=== PATIENT | male | born 1955 | race American Indian/Alaskan Native ===

== ENCOUNTER 2018-03-15 22:55 | Emergency (ER) | payer BC ==
[2018-03-15 23:02] VITALS: BMI 29.7
[2018-03-15 23:10] VITALS: BP 142/101; PULSE 78; RESP 20; O2SAT 98
--- NOTE | 2018-03-15 23:19 | ED PDOC ---
Arrival/HPI - General Chief Complaint: Chest Pain Time Seen by Provider: 03/15/18 22:58 Historian: Patient - History of Present Illness Narrative History of Present Illness (Text): 03/15/18 23:15 62 year old male, with no significant past medical history, presents to the Emergency department complaining of epigastric discomfort since prior to arrival. Patient informs worsening pain exacerbated by sitting up and bending down Patient denies any fever, chills, nausea, vomiting, diarrhea, changed in appetite, hematechezia, chest pain, shortness of breath or any other complaints. 03/16/18 16:08 Time/Duration: Prior to Arrival Symptom Onset: Gradual Symptom Course: Worsening Quality: Aching Activities at Onset: Light Context: Home Past Medical History - Provider Review Nursing Documentation Reviewed: Yes - HEENT Hx HEENT Disorder: Yes Other/Comment: Neuritis right eye - Psychiatric Hx Substance Use: No - Surgical History Hx Appendectomy: Yes - Anesthesia Hx Anesthesia: No Family/Social History - Physician Review Nursing Documentation Reviewed: Yes Family/Social History: No Known Family HX Smoking Status: Never Smoked Hx Alcohol Use: No Hx Substance Use: No Allergies/Home Meds Allergies/Adverse Reactions: Allergies No Known Allergies Allergy (Verified 03/15/18 23:02) Home Medications: Home Meds Medication Instructions Recorded Confirmed valACYclovir [Valtrex] 500 mg PO DAILY 12/23/16 03/15/18 Review of Systems - Physician Review All systems were reviewed & negative as marked: Yes - Review of Systems Constitutional: Normal. absent: Fevers Eyes: Normal ENT: Normal Respiratory: Normal. absent: SOB Cardiovascular: Normal. absent: Chest Pain Gastrointestinal: Abdominal Pain. absent: Diarrhea, Nausea, Vomiting, Appetite Changes, Hematochezia Genitourinary Male: Normal Musculoskeletal: Normal Skin: Normal Neurological: Normal Endocrine: Normal Hemo/Lymphatic: Normal Psychiatric: Normal Physical Exam Vital Signs Reviewed: Yes Vital Signs Pulse Resp BP Pulse Ox 03/15/18 23:09 78 20 142/101 H 98 Temperature: Afebrile Blood Pressure: Hypertensive Pulse: Regular Respiratory Rate: Normal Appearance: Positive for: Well-Appearing, Non-Toxic, Comfortable Pain Distress: None Mental Status: Positive for: Alert and Oriented X 3 - Systems Exam Head: Present: Atraumatic, Normocephalic Pupils: Present: PERRL Extroacular Muscles: Present: EOMI Conjunctiva: Present: Normal Respiratory/Chest: Present: Clear to Auscultation, Good Air Exchange. No: Respiratory Distress, Accessory Muscle Use Cardiovascular: Present: Regular Rate and Rhythm, Normal S1, S2. No: Murmurs Abdomen: Present: Tenderness (mild epigastric tenderness), Normal Bowel Sounds. No: Distention, Peritoneal Signs, Rebound, Guarding Upper Extremity: Present: Normal Inspection. No: Cyanosis, Edema Lower Extremity: Present: Normal Inspection. No: Edema Neurological: Present: GCS=15, CN II-XII Intact, Speech Normal Skin: Present: Warm, Dry, Normal Color. No: Rashes Psychiatric: Present: Alert, Oriented x 3, Normal Insight, Normal Concentration Medical Decision Making ED Course and Treatment: 03/15/18 23:20 Impression: 62 year old male presents to the Emergency department for epigastric discomfort. Plan: -- EKG -- Labs -- CXR -- Protonix -- Urinalysis -- Reassess and disposition Progress Notes: 03/15/18 23:20 EKG: Ordered, reviewed, and independently interpreted the EKG. Rate : 63 BPM Rhythm : NSR Interpretation : No ST-segment elevations or depressions, no T-wave inversions, normal intervals. 03/16/18 02:31 Patient's epigastric discomfort was due to patient's recent intake of some cleansing product. Upon reassessment, patient's symptoms have improved and patient denies any new complaints. Explained and discussed extensively how patient needs to quit smoking but he expresses superficial understanding. He states that he will smoke his last pack of cigarettes prior to quitting. Had this conversation with the patient in the patient but patient fails to cooperate. - Lab Interpretations Lab Results: 03/15/18 23:29 03/15/18 23:29 Lab Results 03/15/18 23:50: Urine Color yellow, Urine Appearance Clear, Urine pH 6.5, Ur Specific [place] 1.020, Urine Protein Negative, Urine Glucose (UA) Negative, Urine Ketones Negative, Urine Blood Negative, Urine Nitrate Negative, Urine Bilirubin Negative, Urine Urobilinogen 0.2, Ur Leukocyte Esterase Negative 03/15/18 23:29: Sodium 140, Potassium 3.7, Chloride 106, Carbon Dioxide 25, Anion Gap 13, BUN 12, Creatinine 1.4, Est GFR ( Amer) > 60, Est GFR (Non- Af Amer) 52, Random Glucose 102, Calcium 8.9, Total Bilirubin 0.3, AST 38, ALT 39, Alkaline Phosphatase 82, Lactate Dehydrogenase 384, Total Creatine Kinase 133, Troponin I < 0.01, Total Protein 7.1, Albumin 4.0, Globulin 3.0, Albumin/ Globulin Ratio 1.3, Amylase 72, Lipase 84 03/15/18 23:29: PT 11.6, INR 1.02, APTT 35.1 03/15/18 23:29: WBC 7.0, RBC 4.72, Hgb 13.8 L, Hct 40.6 L, MCV 86.0, MCH 29.2, MCHC 34.0, RDW 14.0, Plt Count 218, MPV 8.7, Gran % 51.3, Lymph % (Auto) 37.2 H , [place] % (Auto) 9.0 H, Eos % (Auto) 1.9, Baso % (Auto) 0.6, Gran # 3.58, Lymph # (Auto) 2.6, [place] # (Auto) 0.6, Eos # (Auto) 0.1, Baso # (Auto) 0.04 - RAD Interpretation Radiology Orders: 03/15/18 23:16 CHEST PORTABLE [RAD] Stat - EKG Interpretation Interpreted by ED Physician: Yes Type: 12 lead EKG - Medication Orders Current Medication Orders: Discontinued Medications Pantoprazole Sodium (Protonix Inj) 40 mg IVP ONCE STA Stop: 03/15/18 23:19 Last Admin: 03/16/18 00:12 Dose: 40 mg IVP Administration Document 03/16/18 00:12 SS (Rec: 03/16/18 00:12 SS [id number]) Charges for Administration # of IVP Administrations 1 - Scribe Statement The provider has reviewed the documentation as recorded by the Lucindaibdanyell Gurrola. All medical record entries made by the Ania were at my direction and personally dictated by me. I have reviewed the chart and agree that the record accurately reflects my personal performance of the history, physical exam, medical decision making, and the department course for this patient. I have also personally directed, reviewed, and agree with the discharge instructions and disposition. Disposition/Present on Arrival - Present on Arrival Any Indicators Present on Arrival: No History of DVT/PE: No History of Uncontrolled Diabetes: No Urinary Catheter: No History of Decub. Ulcer: No History Surgical Site Infection Following: None - Disposition Have Diagnosis and Disposition been Completed?: Yes Diagnosis: Epigastric abdominal pain Disposition: HOME/ ROUTINE Disposition Time: 02:45 Condition: GOOD Discharge Instructions (ExitCare): Gastritis Prescriptions: Pantoprazole Sodium [Protonix] 40 mg PO DAILY #14 ect Referrals: Roberto Box MD [Primary Care Provider] - Follow up with primary Forms: [employer] ([place]ian)
[2018-03-15 23:45] LABS: BASO # 0.04 K/mm3 (0.0-2.0); BASO % 0.6 % (0.0-3.0); EOS # 0.1 (0.0-0.7); EOS % 1.9 % (1.5-5.0); GRAN # 3.58 (1.4-6.5); GRAN % 51.3 % (50.0-68.0); HEMOGLOBIN 13.8 g/dL (14.0-18.0); LYMPH # 2.6 (1.2-3.4); LYMPH % 37.2 % (22.0-35.0); MEAN CORPUSCULAR HEMOGLOBIN 29.2 pg (25.0-35.0); MEAN PLATELET VOLUME 8.7 fl (7.0-11.0); MONO # 0.6 (0.1-0.6); RBC 4.72 10^6/uL (3.5-6.1)
[2018-03-16] LABS: ALB/GLOB RATIO 1.3 (1.1-1.8); ALT/SGPT 39 U/L (7-56); AMYLASE 72 U/L (35-125); AST/SGOT 38 U/L (17-59); BLOOD UREA NITROGEN 12 mg/dL (7-21); CALCIUM 8.9 mg/dL (8.4-10.5); GFR AFRICAN-AMERICAN > 60; GFR NON-AFRICAN AMERICAN 52; LIPASE 84 U/L (23-300)
[2018-03-16 00:10] LABS: TROPONIN I < 0.01 ng/mL
[2018-03-16 00:20] LABS: PH,URINE 6.5 (4.7-8.0); URINE BILIRUBIN NEGATIVE (NEGATIVE); URINE BLOOD NEGATIVE (NEGATIVE); URINE GLUCOSE (UA) NEGATIVE (NEGATIVE); URINE LEUKOCYTE ESTERASE NEGATIVE Leu/uL (NEGATIVE); URINE PROTEIN NEGATIVE mg/dL (<30 mg/dL); URINE UROBILINOGEN 0.2 E.U./dL (<1 E.U./dL)
[2018-03-16 00:20] LABS: INR 1.02 (0.93-1.08); PARTIAL THROMBOPLASTIN TIME 35.1 Seconds (25.1-36.5); PROTHROMBIN TIME 11.6 SECONDS (9.4-12.5)
[2018-03-16 00:21] LABS: URINE APPEARANCE CLEAR (CLEAR)
--- NOTE | 2018-03-16 09:13 | RAD ---
HISTORY: abd pain COMPARISON: 12/23/2016 FINDINGS: LUNGS: No active pulmonary disease. PLEURA: No significant pleural effusion identified, no pneumothorax apparent. CARDIOVASCULAR: No interval change. Aorta is stable in size. OSSEOUS STRUCTURES: No significant abnormalities. VISUALIZED UPPER ABDOMEN: Normal. OTHER FINDINGS: None. IMPRESSION: No active disease. No interval change.
--- NOTE | 2018-03-16 22:45 | CARD ---
APPROVED REPORT EKG Measurement Heart [id number] <Conclusion> Normal sinus rhythm Minimal voltage criteria for LVH, may be normal variant Borderline ECG
== END 2018-03-16 02:42 | disposition home or self-care (01) ==
LOC: ED 22:55
DX: R10.13 Epigastric pain (principal)
CPT/HCPCS: 71045; 80053; 81003; 82150; 82550; 83615; 83690; 84484; 85025; 85610; 85730; 93005; 96374; 99283; C9113